=== PATIENT | male | born 1960 | race Hispanic/Latino ===

== ENCOUNTER → 2023-03-29 | Outpatient (CLI) | payer OTHER | END | disposition home or self-care (01) | LOC: OIH 10:17 | PROVIDERS: ATTEND Family Medicine | DX: Z13.6 Encounter for screening for cardiovascular disorders (principal) | CPT/HCPCS: 75571 ==

== ENCOUNTER → 2023-07-31 | Outpatient (CLI) | payer OTHER, BC | END | disposition home or self-care (01) | LOC: RAH 09:07 | PROVIDERS: ATTEND Student in an Organized Health Care Education/Training Program | DX: I25.10 Atherosclerotic heart disease of native coronary artery without angina pectoris (principal) | CPT/HCPCS: 78452; 96374; 93017; A9500 ×2 ==

== ENCOUNTER 2023-10-04 05:45 | Day surgery (SDC) | payer OTHER, BC ==
[2023-10-02 08:39] LABS: BASOPHILS # (AUTO) 0.04 K/uL (0.00-0.20); BASOPHILS % (AUTO) 0.9 % (0.0-5.0); EOSINOPHILS # (AUTO) 0.17 K/uL (0.00-0.70); EOSINOPHILS % (AUTO) 3.7 % (0.0-8.0); HEMATOCRIT 50.1 % (42-54); IMMATURE GRANULOCYTE ABSOLUTE 0.03 K/uL (0-1); LYMPHOCYTES % (AUTO) 22.5 % (21.0-51.0); MEAN CORPUSCULAR HEMOGLOBIN 31.1 pg (27.0-33.0); MEAN CORPUSCULAR HGB CONC 34.3 g/dL (32.0-36.0); MEAN CORPUSCULAR VOLUME 90.6 fL (79-99); MONOCYTES # (AUTO) 0.3 K/uL (0.1-1.0); MONOCYTES % (AUTO) 7.5 % (3.0-13.0); NEUTROPHILS # (AUTO) 2.9 K/uL (1.8-7.7); NEUTROPHILS % (AUTO) 64.7 % (40.0-77.0); PLATELET COUNT (AUTO) 217 K/uL (130-400); RED BLOOD CELL COUNT(AUTO) 5.53 MIL/uL (4.50-6.20); RED CELL DISTRIBUTION WIDTH 13.1 % (11.0-15.5); WHITE BLOOD COUNT (AUTO) 4.5 K/uL (4.8-10.8)
[2023-10-02 09:02] LABS: ADD UA MICROSCOPIC YES; APPEARANCE,URINE CLEAR (CLEAR); BILIRUBIN,URINE NEGATIVE (NEGATIVE); COLOR,URINE LIGHT-YELLOW (YELLOW); GLUCOSE, URINE (UA) >=1000 mg/dL (NEGATIVE); KETONES,URINE NEGATIVE (NEGATIVE); LEUKOCYTE ESTERASE ,URINE NEGATIVE Leu/uL (NEGATIVE); NITRATE,URINE NEGATIVE (NEGATIVE); OCCULT BLOOD,URINE NEGATIVE (NEGATIVE); PH,URINE 5.5 (5.0-8.0); PROTEIN,URINE 30 mg/dL (NEGATIVE); UROBILINOGEN,URINE 0.2 mg/dL (0.2-1.0)
[2023-10-02 09:05] LABS: BACTERIA,URINE RARE /HPF (None Seen); MUCUS,URINE RARE LPF (None Seen); WBC,URINE 0-1 /HPF (0-1)
[2023-10-02 09:18] LABS: INR <= 0.93 (0.85-1.15)
[2023-10-02 09:19] LABS: PARTIAL THROMBOPLASTIN TIME 28.5 SEC (26.3-35.5)
[2023-10-02 09:21] LABS: B-TYPE NATRIURETIC PEPTIDE 21 pg/mL (0-100)
[2023-10-02 09:27] VITALS: BP 171/83; PULSE 96; RESP 18
[2023-10-04] VITALS (10 sets, daily range): BP systolic 122–179; BP diastolic 67–94; PULSE 81–89; RESP 15–18
[~2023-10-04] VITALS: Ht 162.6 cm; Wt 66.6 kg
[~2023-10-04 05:45] MED LIST: EMPA25TA PO; HYDR25TA PO; LOSA50TA64 PO; PANT20TA18 PO; PIOG15TA66 PO; ROSU20TA73 PO; TIRZ5PEN SQ
[2023-10-04] MEDS: 0.9%NACL 1000ML 1,000 ML IV ONE (06:41)
[2023-10-04] MEDS ORDERED: INSLAN SQ (06:44)
[2023-10-04] MEDS ORDERED: FENTANYL CITRATE PF 50 MCG/1 ML 2ML VIAL ONE (07:29)
[2023-10-04] MEDS ORDERED: LIDOCAINE HCL 400MG/20ML VIAL ONE (07:29)
[2023-10-04] MEDS ORDERED: HEPARIN 10,000 UNIT/10ML (1,000 UNIT/ML) VIAL ONE (07:29)
[2023-10-04] MEDS ORDERED: MIDAZOLAM HCL 1 MG/ML 2ML VIAL ONE ×2 (07:29→07:45)
[2023-10-04] MEDS ORDERED: VERAPAMIL HCL 2.5 MG/ML VIAL ONE (07:29)
[2023-10-04] MEDS ORDERED: NITROGLYCERIN 50MG/D5W 250ML 0 BOT ONE (07:30)
[2023-10-04] MEDS ORDERED: IOHEXOL 350 MG/ML 100ML INFUS..BTL IV ONE (07:30)
[2023-10-04] MEDS ORDERED: DiphenhydrAMINE HCL 50 MG/ML VIAL ONE (07:56)
[2023-10-04] MEDS ORDERED: GLUCAGON 1MG KIT 1 MG ML IM PRN (08:30)
[2023-10-04] MEDS ORDERED: DEXTROSE 50%-WATER 50 ML DISP.SYRIN IV PRN (08:30)
== END 2023-10-04 11:35 | disposition home or self-care (01) ==
LOC: DAH 05:45
PROVIDERS: ATTEND Student in an Organized Health Care Education/Training Program
DX: I25.10 Atherosclerotic heart disease of native coronary artery without angina pectoris (principal); I10 Essential (primary) hypertension; E11.8 Type 2 diabetes mellitus with unspecified complications; E83.52 Hypercalcemia; Z82.49 Family history of ischemic heart disease and other diseases of the circulatory system; Z83.3 Family history of diabetes mellitus; Z72.89 Other problems related to lifestyle; Z79.4 Long term (current) use of insulin; Z79.899 Other long term (current) drug therapy
CPT/HCPCS: 80048; 83880; 85025; 85610; 85730; 81001; 36415; 71045; 93005; 93458; 82948 ×2; C1769 ×2; C1894; A4649; J1200; J3010; J3490 ×2; J7030; J1644 ×2; J2250 ×2; Q9967; A4215; A4222; A4221; A4663; A4216; A4606; Q9965; A4223 ×3; 99156; 99157

== ENCOUNTER → 2024-11-20 | Outpatient (CLI) | payer BC ==
[~2024-11-20] MED LIST changes: +AEC81 PO; +FURO20TA6 PO; -HYDR25TA PO; +INSLAN SQ; -LOSA50TA64 PO; +METO25 PO; -ROSU20TA73 PO; +ROSU20TA98 PO
[2024-11-20 09:03] LABS: INR 3.84 (0.85-1.15); PROTHROMBIN TIME 35.6 SEC (9.6-11.6)
== END | disposition home or self-care (01) ==
LOC: LAB 07:50
PROVIDERS: ATTEND Student in an Organized Health Care Education/Training Program
DX: I48.91 Unspecified atrial fibrillation (principal); Z79.01 Long term (current) use of anticoagulants
CPT/HCPCS: 36415; 85610

== ENCOUNTER → 2024-11-26 | Outpatient (CLI) | payer BC ==
[2024-11-26 09:52] LABS: ALBUMIN 3.8 g/dL (3.5-5.0); BILIRUBIN,TOTAL 0.6 mg/dL (0.2-1.0); POTASSIUM 4.3 mmol/L (3.5-5.1); TOTAL PROTEIN, SERUM 7.2 g/dL (6.0-8.3)
== END | disposition home or self-care (01) ==
LOC: LAB 09:03
PROVIDERS: ATTEND Student in an Organized Health Care Education/Training Program
DX: I25.10 Atherosclerotic heart disease of native coronary artery without angina pectoris (principal)
CPT/HCPCS: 36415; 80053

== ENCOUNTER → 2024-11-27 | Outpatient (CLI) | payer BC ==
[~2024-11-27] MED LIST changes: +IOHEXOL 350 MG/ML 100ML INFUS..BTL IV ONE; +metoPROLOL tartRATE 1 MG/ML 5ML VIAL IV ONE
--- NOTE | 2024-11-27 10:06 | HMCIMG ---
CT CARDIAC ANGIO W/CONT. CCTA HISTORY: Presence of aortocoronary bypass graft. COMPARISON: None TECHNIQUE: Multiple sequential axial images of the chest were obtained along with the CT angiogram of the chest study. Patient was given 100 cc of Omnipaque through intravenous route. FINDINGS: There is no evidence of pulmonary nodule or parenchymal disease. No pleural effusion or pericardial effusion is seen. There is no evidence of pneumothorax. There are normal size mediastinal and hilar lymph nodes. The heart is not enlarged. Degenerative changes of the thoracolumbar spine are present. IMPRESSION: 1. No evidence of pulmonary nodule or effusion is seen. Please see CT angiogram report of coronary arteries.
== END | disposition home or self-care (01) ==
LOC: RAH 08:15
PROVIDERS: ATTEND Student in an Organized Health Care Education/Training Program
DX: M47.815 Spondylosis without myelopathy or radiculopathy, thoracolumbar region (principal); Z95.1 Presence of aortocoronary bypass graft
CPT/HCPCS: 75574; J3490; Q9967

== ENCOUNTER → 2024-12-04 | Outpatient (CLI) | payer BC ==
[~2024-12-04] MED LIST changes: -IOHEXOL 350 MG/ML 100ML INFUS..BTL IV ONE; +PERFLUTREN PROTEIN-A MICROSPHR 0.22 MG/ML VIAL IV ONE; -metoPROLOL tartRATE 1 MG/ML 5ML VIAL IV ONE
== END | disposition home or self-care (01) ==
LOC: RAH 12:51
PROVIDERS: ATTEND Student in an Organized Health Care Education/Training Program
DX: I34.0 Nonrheumatic mitral (valve) insufficiency (principal); I23.6 Thrombosis of atrium, auricular appendage, and ventricle as current complications following acute myocardial infarction
CPT/HCPCS: C8929; Q9956